=== PATIENT | female | born 1950 | race American Indian/Alaskan Native ===

== ENCOUNTER → 2017-12-19 12:02 | Outpatient (CLI) | payer MEDICARE, MEDICAID, OTHER, SELFPAY ==
--- NOTE | 2017-12-19 | DI.MG.S_ITS ---
BILATERAL DIGITAL SCREENING MAMMOGRAM 3D/2D WITH CAD: 12/19/2017 CLINICAL: Routine screening. Comparison is made to exams dated: 12/05/2016 mammogram, 12/01/2014 mammogram - [facility], and 02/15/2014 mammogram - [facility]. The tissue of both breasts is predominantly fatty. Current study was also evaluated with a Computer Aided Detection (CAD) system. No significant masses, calcifications, or other findings are seen in either breast. There has been no significant interval change. IMPRESSION: NEGATIVE There is no mammographic evidence of malignancy. A 1 year screening mammogram is recommended. This exam was interpreted at Station ID: [id number]. NOTE: For mammograms, a report in lay terms will be sent to the patient. Approximately 15% of breast malignancies will not be visualized mammographically. In the management of a palpable breast mass, a negative mammogram must not discourage biopsy of a clinically suspicious lesion. Electronically Signed By: Ronda galaviz/feliz:12/19/2017 12:32:50 letter sent: Normal Exam ACR BI-RADS Category 1: Negative [id number]
== END ==
PROVIDERS: PCP Family Medicine; Visit Provider Physician Assistant
DX: Z12.31 Encounter for screening mammogram for malignant neoplasm of breast (principal)
CPT/HCPCS: 77063; 77067

== ENCOUNTER → 2018-02-12 16:41 | Outpatient (CLI) | payer MEDICARE, MEDICAID, OTHER, SELFPAY ==
--- NOTE | 2018-02-12 16:45 | DI.RAD.S_ITS ---
PROCEDURE: XR SHOULDER LT MIN 2V INDICATIONS: LEFT SHOULDER PAIN AND LEFT RIB PAIN TECHNIQUE: 3 views of the shoulder were acquired. COMPARISON: [facility], , SHOULDER MINIMUM 2 VIEW LEFT, 07/14/2009, 6:37. FINDINGS: Bones: No fractures or dislocations. No suspicious bony lesions. Visualized ribs appear intact. Old unhealed distal left clavicle fracture. Superior distraction of the proximal fragment. Soft tissues: No suspicious soft tissue calcifications. IMPRESSION: Old unhealed distal left clavicle fracture with superior distraction of the proximal fragment. Dictated by: Roberth Rios M.D. on 02/12/2018 at 17:26 Approved by: Roberth Rios M.D. on 02/12/2018 at 17:27
--- NOTE | 2018-02-12 16:45 | DI.RAD.S_ITS ---
PROCEDURE: XR CHEST 2V INDICATIONS: LEFT SHOULDER PAIN, LEFT RIB PAIN TECHNIQUE: 2 views of the chest were acquired. COMPARISON: [facility], , CHEST 2 VIEW, 10/25/2015, 17:04. FINDINGS: Surgical changes and devices: None. Lungs and pleura: No pleural effusions or pneumothorax. Lungs are clear. Mediastinum: Mediastinal contours are normal. Heart size is normal. Bones and chest wall: No suspicious bony abnormalities. Soft tissues appear unremarkable. IMPRESSION: No radiographic evidence of acute cardiopulmonary pathology. Dictated by: Roberth Rios M.D. on 02/12/2018 at 17:26 Approved by: Roberth Rios M.D. on 02/12/2018 at 17:26
== END ==
PROVIDERS: PCP Family Medicine; Visit Provider Physician Assistant
DX: M25.512 Pain in left shoulder (principal); R07.81 Pleurodynia; S42.032G Displaced fracture of lateral end of left clavicle, subsequent encounter for fracture with delayed healing
CPT/HCPCS: 71046; 73030

== ENCOUNTER 2020-03-04 23:22 | Emergency (ER) | payer MEDICARE, MEDICAID, OTHER, SELFPAY ==
[2020-03-04 23:26] VITALS: BP 180/82; PULSE 103; RESP 22; TEMP 36.7; O2SAT 96; BMI 25.6
--- NOTE | 2020-03-04 23:27 | DI.CT.S_ITS ---
PROCEDURE: CT HEAD/BRAIN WO CON INDICATIONS: worst headache, persistent vomiting TECHNIQUE: Noncontrast 4.5 mm thick angled axial sections acquired from the foramen magnum to the vertex, with coronal and sagittal reformats. For radiation dose reduction, the following was used: automated exposure control, adjustment of mA and/or kV according to patient size. COMPARISON: [facility], CT, CT HEAD WITHOUT CONTRAST, 10/23/2019, 1:46. [facility], CT, HEAD WITHOUT CONTRAST, 12/04/2016, 14:44. FINDINGS: Image quality: Excellent. CSF spaces: Basal cisterns are patent. No extra-axial fluid collections. Ventricles are normal in size and shape. Brain: No midline shift. No intracranial masses or hemorrhage. Bonner-white matter interface is normal. Skull and face: Remote left nasal bone fracture. Calvarium and visualized facial bones are otherwise intact, without suspicious lesions. Sinuses: There is chronic smooth osteitis of maxillary sinuses and partially imaged postsurgical changes of antrostomies bilaterally. Small fluid level in the right sphenoid sinus. IMPRESSION: 1. No CT evidence of acute intracranial process. 2. Changes of acute, mild right sphenoid sinusitis, and chronic maxillary sinusitis post surgery. 3. Concordant with preliminary report. Dictated by: Georgia Ruiz M.D. on 03/05/2020 at 6:45 Approved by: Georgia Ruiz M.D. on 03/05/2020 at 6:48
--- NOTE | 2020-03-04 23:28 | ED.HA ---
HPI - Headache General Chief Complaint: Headache Stated Complaint: Migraine x3 days N/V Time Seen by Provider: 03/04/20 23:25 Source: patient and EMS Mode of arrival: EMS Limitations: no limitations History of Present Illness HPI Narrative: 69F non smoker with history of heavy etoh abuse and headaches presents with the chief complaint of a severe generalized, squeezing headache which started 3 days ago while she was in the kitchen. She states it has been rather persistent. She denies any injury, fever, or chills. She denies focal neurologic problems like blurred or double vision nor extremity numbness, weakness, or tingling. She denies any recent medication or diet change. She has had multiple episodes of vomiting and hasn't had much to eat or drink. She admits to worsening with bright lights and loud noises. She's had no chest pain or shortness of breath, she has no trouble urinating. She denies recent travel, exposure to persons with known COVID. MD Complaint: headache and migraine Onset (ago): day(s) Onset description: sudden Location: frontal Severity: severe Quality: throbbing and squeezing Relieving factors: dark room Exacerbating factors: light and noise Context: occurred at rest Associated symptoms: nausea and vomiting Treatments prior to arrival: none Related Data Home Medications Medication Instructions Recorded Confirmed aspirin #0 08/07/17 hydroxyzine HCl #0 08/07/17 lisinopril #0 08/07/17 lovastatin 40 mg PO HS #0 08/07/17 metformin [Glucophage XR] 750 mg PO [facility] #0 08/07/17 ranitidine HCl 150 mg PO BID #0 08/07/17 Previous Rx's Medication Instructions Recorded pioglitazone 15 mg PO QDAY #30 tab 08/23/16 escitalopram oxalate [Lexapro] 20 mg PO QDAY #30 tab 02/24/17 Allergies Allergy/AdvReac Type Severity Reaction Status Date / Time Sulfa (Sulfonamide Allergy Unknown Vomiting Verified 03/04/20 23:51 Antibiotics) [SULFA (SULFONAMIDE ANTIBIOTICS)] metoclopramide AdvReac Unknown Anxiety Verified 03/04/20 23:51 [METOCLOPRAMIDE] Review of Systems Constitutional Constitutional: Denies chills, Denies fatigue, Denies fever(s), Denies frequent falls, Reports headache(s), Denies lethargy and Denies weakness Eyes Eyes: Denies change in vision, Denies eye discharge, Denies irritation and Denies loss of vision ENT Ears, Nose, Mouth, and Throat: Denies change in voice, Denies dizziness, Reports headache(s), Denies neck pain, Denies sore throat and Denies throat swelling Cardiovascular Cardiovascular: Denies chest pain, Denies irregular heart rhythm, Denies lightheadedness, Denies palpitations, Denies dyspnea, Denies dyspnea on exertion and Denies orthopnea Respiratory Respiratory: Denies cough, Denies dyspnea, Denies dyspnea on exertion and Denies wheezing Gastrointestinal Gastrointestinal: Denies abdominal pain, Denies change in bowel habits, Denies diarrhea, Reports nausea and Reports vomiting Musculoskeletal Musculoskeletal: Denies neck pain and Denies numbness Integumentary/Breasts Skin/Breast: Denies pruritus, Denies erythema, Denies rash and Denies wounds Neurologic Neurologic: Denies behavioral changes, Denies confusion, Denies dizziness, Denies frequent falls, Reports headache(s), Denies loss of vision, Denies numbness and Denies weakness Psychiatric Psychiatric: Denies anxiety, Denies behavioral changes, Denies confusion, Denies depression, Denies homicidal ideation and Denies suicidal ideation Endocrine Endocrine: Denies fatigue, Denies flushing and Denies palpitations Hematologic/Lymphatic Hematologic/Lymphatic: Denies easy bruising Allergic/Immunologic Allergic/Immunologic: Denies urticaria, Denies throat swelling and Denies wheezing Patient History Social History Smoking Status: Never smoker Smoking Status: Never smoker alcohol intake frequency: a few times a week Substance Use Type: does not use Exam Narrative Exam Narrative: GENERAL: [69] year old patient appears stated age. Well-nourished, well-developed patient, in mild distress. Holding an emesis bag HEAD: Atraumatic. Normocephalic. EYES: Pupils equal round and reactive. Extraocular motions intact. No scleral icterus. No injection or drainage. ENT: Nose without bleeding, purulent drainage. Throat without erythema, tonsillar hypertrophy or exudate. Airway patent. NECK: Trachea midline. Non tender CARDIOVASCULAR: Regular rate and rhythm without murmurs, gallops, or rubs. RESPIRATORY: Clear to auscultation. Breath sounds equal bilaterally. No wheezes, rales, or rhonchi. GASTROINTESTINAL: Abdomen soft, non-tender, nondistended. EXTREMITIES: No edema or joint tenderness. BACK: Nontender without deformity or crepitance. No flank tenderness. NEURO: AOx3. SKIN: No rash or erythema of visible areas NIH Stroke Scale 1a. LOC: Patient is alert and keenly responsive (0) 1b. LOC Questions: Patient answers both LOC questions accurately (0) 1c. LOC Commands: Patient performs both tasks correctly (0) 2. Best Gaze: Normal (0) 3. Visual: No visual loss (0) 4. Facial palsy: Normal symmetrical movements (0) 5. Motor arm: No drift (0) 6. Motor leg: No drift (0) 7. Limb ataxia: Absent (0) 8. Sensory: Normal (0) 9. Best language: No aphasia; normal (0) 10. Dysarthria: Normal (0) 11. Extinction and inattention: No abnormality (0) NIHSS: 0 Initial Vital Signs Initial Vital Signs: Vital Signs Temperature 98.0 F 03/04/20 23:26 Pulse Rate 103 H 03/04/20 23:26 Respiratory Rate 22 03/04/20 23:26 Blood Pressure 180/82 H 03/04/20 23:26 Pulse Oximetry 96 03/04/20 23:26 Course Orders Ordered: Discontinued Medications Acetaminophen (Tylenol) 650 mg PO NOW ONE Stop: 03/05/20 00:44 Last Admin: 03/05/20 00:50 Dose: 650 mg Documented by: NAS Dexamethasone (Decadron) 10 mg IV NOW ONE Stop: 03/04/20 23:27 Last Admin: 03/04/20 23:34 Dose: 10 mg Documented by: MALIK Sodium Chloride (Normal Saline 0.9%) 1,000 mls @ 1,000 mls/hr IV BOLUS ONE Stop: 03/05/20 00:25 Last Infusion: 03/05/20 00:59 Dose: 0 mls/hr Documented by: Admin: 03/04/20 23:34 Dose: 1,000 mls/hr Documented by: MALIK Ketorolac Tromethamine (Toradol) 15 mg IV NOW ONE Stop: 03/04/20 23:27 Last Admin: 03/04/20 23:35 Dose: 15 mg Documented by: MALIK Ketorolac Tromethamine (Toradol) 15 mg IV NOW ONE Stop: 03/05/20 04:01 Last Admin: 03/05/20 04:08 Dose: 15 mg Documented by: ROGER Ondansetron HCl (Zofran) 4 mg IV Q4HR PRN PRN Reason: Nausea And Vomiting Last Admin: 03/05/20 04:08 Dose: 4 mg Documented by: Admin: 03/04/20 23:31 Dose: 4 mg Documented by: MALIK Vital Signs Vital signs: Vital Signs - 8 hr 03/04/20 23:26 03/04/20 23:29 03/04/20 23:30 Temperature 98.0 F Pulse Rate 103 H 92 H 93 H Respiratory Rate 22 Blood Pressure 180/82 H 150/68 H Pulse Oximetry 96 97 96 03/05/20 00:00 Temperature Pulse Rate 80 Respiratory Rate Blood Pressure Pulse Oximetry 95 MDM - Headache Lab Data Result diagrams: 03/04/20 23:30 03/04/20 23:30 Labs: Lab Results 03/04/20 03/04/20 Range/Units 23:30 23:30 WBC 6.4 (4.5-11.0) X10^3/uL RBC 5.42 H (4.0-5.2) X10^6/uL Hgb 16.2 H (12.0-16.0) g/dL Hct 47.9 H (36-46) % MCV 88.5 (80-100) fL MCH 29.9 (26-34) PG MCHC 33.8 (30-36) % RDW 13.4 (11.6-14.8) % Plt Count 283 (150-400) X10^3/uL Neut % (Auto) 64.1 (50-75) % Lymph % (Auto) 28.4 (25-40) % [place] % (Auto) 4.7 (3-14) % Eos % (Auto) 1.8 L (2-4) % Baso % (Auto) 1.0 (0-2) % Neut # (Auto) 4100 (9287-5803) /uL Lymph # (Auto) 1800 (5064-7144) /uL [place] # (Auto) 300 (0-900) /uL Eos # (Auto) 100 (0-450) /uL Baso # (Auto) 100 (0-100) /uL Sodium 137 (137-145) mmol/L Potassium 4.3 (3.4-5.1) mmol/L Chloride 102 (98-107) mmol/L Carbon Dioxide 26 (22-32) mmol/L BUN 12 (7-17) mg/dL Creatinine 0.47 L (0.52-1.04) mg/dL Estimated GFR > 60.0 (>60) mL/min BUN/Creatinine Ratio 25.5 H (6-22) Glucose 235 H (80-110) mg/dL Calcium 10.2 (8.4-10.2) mg/dL Total Bilirubin 0.8 (0.2-1.3) mg/dL AST 57 H (14-36) IU/L ALT 38 H (<35) IU/L Alkaline Phosphatase 127 H (38-126) U/L Total Protein 8.1 (6.3-8.2) g/dL Albumin 4.5 (3.5-5.0) g/dL Globulin 3.6 (1.7-4.1) g/dL Albumin/Globulin Ratio 1.3 (1.0-2.8) Imaging Data CT scan - head: Radiologist's Impression: No acute intracranial findings. Right sinusitis Discharge Plan Departure Patient Disposition: Home Clinical Impression: Headache Qualifiers: Headache type: unspecified Headache chronicity pattern: unspecified pattern Intractability: not intractable Qualified Code(s): R51 - Headache Discharge Date/Time: 03/05/20 09:17 Instructions: DI for Headache Activity Restrictions/Additional Instructions: *You have been diagnosed with [headache] *What to do: *Take medications as directed *Follow up with your primary care provider in 2-3 days, call for an appointment. Let them know you were seen in the Emergency Department and that we ask that you be seen in follow up *Return to ER if you should have any new, worsening or concerning symptoms Prescriptions: No Action pioglitazone 15 MG tablet 15 mg PO QDAY Qty: 30 RF: 0 escitalopram oxalate [Lexapro] 20 MG tablet 20 mg PO QDAY Qty: 30 RF: 2 aspirin 81 MG tablet,chewable Qty: 0 RF: 0 ranitidine HCl 150 MG capsule 150 mg PO BID Qty: 0 RF: 0 lisinopril 2.5 MG tablet Qty: 0 RF: 0 metformin [Glucophage XR] 750 MG tablet extended release 24 hr 750 mg PO [facility] Qty: 0 RF: 0 lovastatin 40 MG tablet 40 mg PO HS Qty: 0 RF: 0 hydroxyzine HCl 25 MG tablet Qty: 0 RF: 0 Referrals: Stacy Mills MD [Primary Care Provider] -
[2020-03-04 23:29] VITALS: PULSE 92; O2SAT 97
[2020-03-04 23:30] VITALS: BP 150/68; PULSE 93; O2SAT 96
[2020-03-04] MEDS: ONDANSETRON 4 MG/2 ML INJ IV (23:31)
[2020-03-04] MEDS: DEXAMETHASONE 10 MG/ML VIAL IV (23:34)
[2020-03-04] MEDS: SODIUM CHLORIDE 0.9% 1,000 ML 1000 ML IV (23:34)
[2020-03-04] MEDS: KETOROLAC 60 MG/2 ML VIAL 15 MG IV (23:35)
[2020-03-04 23:45] LABS: Add Manual Diff / Slide Review NO; Basophils Absolute Auto 100 /uL (0-100); Eosinophils Absolute Auto 100 /uL (0-450); Eosinophils Percent Auto 1.8 % (2-4); Hematocrit 47.9 % (36-46); Hemoglobin 16.2 g/dL (12.0-16.0); Lymphocytes Absolute Auto 1800 /uL (1100-4500); Lymphocytes Percent Auto 28.4 % (25-40); Mean Corpuscular HGB Conc 33.8 % (30-36); Mean Corpuscular Hemoglobin 29.9 PG (26-34); Mean Corpuscular Volume 88.5 fL (80-100); Monocytes Absolute Auto 300 /uL (0-900); Monocytes Percent Auto 4.7 % (3-14); Neutrophils Absolute Auto 4100 /uL (1500-7000); Neutrophils Percent Auto 64.1 % (50-75); Platelet Count 283 X10^3/uL (150-400); Red Blood Cell Count 5.42 X10^6/uL (4.0-5.2); Red Cell Distribution Width 13.4 % (11.6-14.8); White Blood Cell Count 6.4 X10^3/uL (4.5-11.0)
[2020-03-04 23:49] LABS: Alanine Aminotransferase 38 IU/L (<35); Albumin 4.5 g/dL (3.5-5.0); Albumin Globulin Ratio 1.3 (1.0-2.8); Alkaline Phosphatase 127 U/L (38-126); Aspartate Aminotransferase 57 IU/L (14-36); BUN Creatinine Ratio 25.5 (6-22); Bilirubin Total 0.8 mg/dL (0.2-1.3); Blood Urea Nitrogen 12 mg/dL (7-17); Calcium 10.2 mg/dL (8.4-10.2); Carbon Dioxide 26 mmol/L (22-32); Chloride 102 mmol/L (98-107); Estimated Glomerular Filt Rate > 60.0 mL/min (>60); Globulin 3.6 g/dL (1.7-4.1); Glucose 235 mg/dL (80-110); HEMOLYSIS < 15 (0-50); Potassium 4.3 mmol/L (3.4-5.1); Sodium 137 mmol/L (137-145); Total Protein 8.1 g/dL (6.3-8.2)
[2020-03-05] VITALS: PULSE 80; O2SAT 95
--- NOTE | 2020-03-05 00:42 | PC.NURSE ---
patient gave permission witnessed by PAULINA Olivarez to gave her daughter Jessica an update on the phone. Jessica called at [phone].
[2020-03-05] MEDS: ACETAMINOPHEN 325 MG TABLET 650 MG PO (00:50)
--- NOTE | 2020-03-05 02:33 | PC.NURSE ---
several attempts made to call patient contacts to come and pick patient up. Patient resting on stretcher. denies needs at this time. States her headache is still feeling better. room kept dark and warm blankets provided.
[2020-03-05] MEDS: ONDANSETRON 4 MG/2 ML INJ IV (04:08)
[2020-03-05] MEDS: KETOROLAC 60 MG/2 ML VIAL 15 MG IV (04:08)
--- NOTE | 2020-03-05 06:46 | PC.NURSE ---
attempted to call Urszula Herzog to give patient a ride home. No answer. Message left. [phone]
== END 2020-03-05 09:17 | disposition home or self-care (01) ==
PROVIDERS: Emergency Provider Emergency Medicine; PCP Family Medicine
DX: R51 Headache (principal); R11.10 Vomiting, unspecified
CPT/HCPCS: 36415; 70450; 80053; 85025; 96361; 96374; 96375; 96376; 99284; J1100; J1885; J2405

== ENCOUNTER 2021-11-04 14:24 | Emergency (ER) | payer MEDICARE, MEDICAID, OTHER, SELFPAY ==
[2021-11-04] VITALS (16 sets, daily range): BP systolic 136–176; BP diastolic 63–79; PULSE 67–94; RESP 18–20; TEMP 36.5; O2SAT 96–99; BMI 23.0
--- NOTE | 2021-11-04 14:33 | DI.RAD.S_ITS ---
PROCEDURE: XR ACUTE ABDOMEN SERIES INDICATIONS: Abdominal pain, N/V TECHNIQUE: One view chest and two views of the abdomen were acquired. COMPARISON: [facility], CT, CT ABDOMEN PELVIS WITH CONTRAST, 11/26/2020, 18:14. [facility], CT, CT ANGIO CHEST PE, 02/19/2021, 21:14. [facility], CR, XR CHEST 1 VIEW, 10/22/2021, 14:13. FINDINGS: Surgical changes and devices: None. Chest: Lungs are clear. Heart size is normal. No pleural effusions. No pneumoperitoneum. Abdomen: Bowel gas pattern is normal. A nnzm-cy-jrdhuomj amount of stool is seen within the colon. No suspicious calcifications. Visualized solid organ contours appear normal. Bones: No suspicious bony lesions. Age-appropriate bony degenerative changes are seen. Mild dextroconvex scoliotic curvature is seen. IMPRESSION: A nonobstructive bowel gas pattern is seen. If clinically appropriate, please consider a repeat plain film study or a dedicated CT of the abdomen and pelvis, if the patient's symptoms persist or worsen. There is a mild to moderate amount of stool seen within the colon. Please correlate with an underlying history of constipation. Dictated by: Tapan Espinal M.D. on 11/04/2021 at 14:36 Approved by: Tapan Espinal M.D. on 11/04/2021 at 14:39
--- NOTE | 2021-11-04 14:52 | ED.HA ---
HPI - Headache General Chief Complaint: Headache Stated Complaint: migraine headache and nausea Time Seen by Provider: 11/04/21 14:28 Mode of arrival: Ambulatory History of Present Illness HPI Narrative: 70F former smoker with heavy alcohol history as well as hypertension, hyperlipidemia and migraines presents with family in the chief complaint of a gradually worsening migraine over the past day or 2. She states it started yesterday and has been gradual in its onset, it is largely in the front part of her head and seems to be worse with bright lights, loud noise and vomiting. She denies any blurred vision or trouble with speech. She denies any neck pain, back pain or chest pain. She has no fever or chills. She does not take blood thinners. She has had difficulty keeping anything to eat or drink down and now feels a bit dizzy, weak and lightheaded. She becomes dizzy upon standing. Related Data Home Medications Medication Instructions Recorded Confirmed aspirin 81 mg chewable tablet #0 08/07/17 hydroxyzine HCl 25 mg tablet #0 08/07/17 lisinopril 2.5 mg tablet #0 08/07/17 lovastatin 40 mg tablet 40 mg PO HS #0 08/07/17 metformin 750 mg tablet,extended 750 mg PO AMCC #0 08/07/17 release 24 hr (Glucophage XR) ranitidine HCl 150 mg capsule 150 mg PO BID #0 08/07/17 Previous Rx's Medication Instructions Recorded pioglitazone 15 mg tablet 15 mg PO QDAY #30 tab 08/23/16 escitalopram oxalate 20 mg tablet 20 mg PO QDAY #30 tab 02/24/17 (Lexapro) ondansetron 4 mg disintegrating 4 mg PO TID-QID PRN #10 tab 11/04/21 tablet Allergies Allergy/AdvReac Type Severity Reaction Status Date / Time Sulfa (Sulfonamide Allergy Unknown Vomiting Verified 11/04/21 14:38 Antibiotics) [SULFA (SULFONAMIDE ANTIBIOTICS)] oxycodone Allergy Verified 11/04/21 14:38 metoclopramide AdvReac Unknown Anxiety Verified 11/04/21 14:38 [METOCLOPRAMIDE] Review of Systems Review of Systems Narrative: GENERAL: Denies chills, fatigue, malaise, fever, sweats. HEENT: Denies sinus pain, ear pain, sore throat, difficulty swallowing, dizziness. RESPIRATORY: Denies dyspnea, cough, wheezing, hemoptysis, sputum. CARDIOVASCULAR: Denies chest pain, palpitations, orthopnea, edema, GASTROINTESTINAL: See HPI : Denies dysuria, frequency, incontinence, hematuria, urinary retention. MUSCULOSKELETAL: denies weakness, joint pain, or bony pain SKIN: Denies rash, skin lesions, or other NEUROLOGIC: See HPI PSYCHIATRIC: No concerning psychosocial issues. 12 point review of systems is negative except for those stated above Patient History Social History Smoking Status: Former smoker Smoking Status: Former smoker alcohol intake frequency: a few times a week Substance Use Type: does not use Exam Narrative Exam Narrative: GENERAL: [70] year old patient appears stated age. Well-developed patient, in mild distress. Appears to be feeling unwell, rubbing her forehead HEAD: Atraumatic. Normocephalic. EYES: Pupils equal round and reactive. Extraocular motions intact. No scleral icterus. No injection or drainage. ENT: Nose without bleeding, purulent drainage. Throat without erythema, tonsillar hypertrophy or exudate. Airway patent. NECK: Trachea midline. Non tender. No meningeal signs. CARDIOVASCULAR: Regular rate and rhythm without murmurs, gallops, or rubs. RESPIRATORY: Clear to auscultation. Breath sounds equal bilaterally. No wheezes, rales, or rhonchi. GASTROINTESTINAL: Abdomen soft, non-tender, nondistended. Bowel sounds present EXTREMITIES: No edema or joint tenderness. BACK: Nontender without deformity or crepitance. No flank tenderness. NEURO: AOx3. SKIN: No rash or erythema of visible areas Initial Vital Signs Initial Vital Signs: Vital Signs Pulse Rate 94 H 11/04/21 14:28 Pulse Oximetry 97 11/04/21 14:28 Course Orders Ordered: ED Orders 11/04/21 14:33 XR acute abdomen series Stat 11/04/21 15:00 Complete Blood Count AUTO DIFF Stat Comprehensive Metabolic Panel Stat Lipase Stat Magnesium Stat 11/04/21 16:25 CT head/brain wo con Stat Discontinued Medications Sodium Chloride (Normal Saline 0.9%) 1,000 mls @ 1,000 mls/hr IV BOLUS ONE Stop: 11/04/21 15:31 Last Infusion: 11/04/21 16:58 Dose: 0 mls/hr Documented by: Admin: 11/04/21 15:13 Dose: 1,000 mls/hr Documented by: TYE Sodium Chloride (Normal Saline 0.9%) 500 mls @ 1,000 mls/hr IV BOLUS ONE Stop: 11/04/21 18:01 Last Infusion: 11/04/21 18:29 Dose: 0 mls/hr Documented by: Admin: 11/04/21 17:51 Dose: 1,000 mls/hr Documented by: JULIA Ketorolac Tromethamine (Ketorolac 30 Mg/Ml Vial) 15 mg IV NOW ONE Stop: 11/04/21 14:54 Last Admin: 11/04/21 15:08 Dose: 15 mg Documented by: TYE Metoclopramide HCl (Metoclopramide 10 Mg/2 Ml Inj) 5 mg IV NOW ONE Stop: 11/04/21 17:34 Last Admin: 11/04/21 17:52 Dose: 5 mg Documented by: JULIA Ondansetron HCl (Ondansetron 4 Mg/2 Ml Inj) 4 mg IV NOW ONE Stop: 11/04/21 14:33 Last Admin: 11/04/21 15:07 Dose: 4 mg Documented by: TYE Ondansetron HCl (Ondansetron 4 Mg Odt Prepack) 1 bottle MISC SEEINSTR ONE Stop: 11/04/21 18:51 Last Admin: 11/04/21 18:53 Dose: 1 bottle Documented by: Pantoprazole Sodium (Pantoprazole 40 Mg Vial) 40 mg IV NOW ONE Stop: 11/04/21 14:54 Last Admin: 11/04/21 15:11 Dose: 40 mg Documented by: TYE Vital Signs Vital signs: Vital Signs - 8 hr 11/04/21 14:28 11/04/21 14:29 11/04/21 14:30 Temperature Pulse Rate 94 H 94 H 86 Respiratory Rate 20 Blood Pressure 167/74 H Pulse Oximetry 97 97 98 11/04/21 14:34 11/04/21 15:00 11/04/21 15:30 Temperature 97.7 F Pulse Rate 94 H 79 71 Respiratory Rate 18 Blood Pressure 167/74 H Pulse Oximetry 98 96 98 11/04/21 15:31 11/04/21 16:00 11/04/21 16:38 Temperature Pulse Rate 71 71 72 Respiratory Rate Blood Pressure 136/63 144/66 H Pulse Oximetry 98 98 98 11/04/21 16:59 11/04/21 17:00 11/04/21 17:30 Temperature Pulse Rate 73 67 69 Respiratory Rate Blood Pressure Pulse Oximetry 98 99 99 11/04/21 18:03 Temperature Pulse Rate 72 Respiratory Rate 20 Blood Pressure 176/79 H Pulse Oximetry 97 MDM - Headache Lab Data Result diagrams: 11/04/21 15:00 11/04/21 15:00 Labs: Lab Results 11/04/21 11/04/21 Range/Units 15:00 15:00 WBC 4.8 (4.5-11.0) X10^3/uL RBC 4.86 (4.0-5.2) X10^6/uL Hgb 14.1 (12.0-16.0) g/dL Hct 41.7 (36-46) % MCV 85.8 (80-100) fL MCH 29.1 (26-34) PG MCHC 33.9 (30-36) % RDW 13.1 (11.6-14.8) % Plt Count 264 (150-400) X10^3/uL Neut % (Auto) 56.6 (50-75) % Lymph % (Auto) 32.8 (25-40) % Piatt % (Auto) 4.8 (3-14) % Eos % (Auto) 4.8 H (2-4) % Baso % (Auto) 1.0 (0-2) % Neut # (Auto) 2700 (5119-2325) /uL Lymph # (Auto) 1600 (4938-0432) /uL Piatt # (Auto) 200 (0-900) /uL Eos # (Auto) 200 (0-450) /uL Baso # (Auto) 0 (0-100) /uL Sodium 137 (137-145) mmol/L Potassium 4.6 (3.4-5.1) mmol/L Chloride 101 (98-107) mmol/L Carbon Dioxide 29 (22-32) mmol/L BUN 8 (7-17) mg/dL Creatinine 0.55 (0.52-1.04) mg/dL Estimated GFR > 60.0 (>60) mL/min BUN/Creatinine Ratio 14.5 (6-22) Glucose 243 H (80-110) mg/dL Calcium 9.2 (8.4-10.2) mg/dL Magnesium 1.8 (1.6-2.3) mg/dL Total Bilirubin 0.6 (0.2-1.3) mg/dL AST 41 H (14-36) IU/L ALT 26 (<35) IU/L Alkaline Phosphatase 109 (38-126) U/L Total Protein 7.7 (6.3-8.2) g/dL Albumin 4.3 (3.5-5.0) g/dL Globulin 3.4 (1.7-4.1) g/dL Albumin/Globulin Ratio 1.3 (1.0-2.8) Lipase 900 H (23-300) U/L Urine Dip Bedside Urine Glucose Negative Bedside Urine Bilirubin - Negative Bedside Urine Ketone - Negative Urine Specific Hinkley 1.01 Bedside Urine Occult Blood - Negative Bedside Urine pH 7 Bedside Urine Protein - Negative Bedside Urine Urobilinogen - Negative Bedside Urine Nitrite - Negative Bedside Urine Leukocytes - Negative Esterase Imaging Data CT scan - head: Radiologist's Impression: Chart Viewer Diagnostics Subcategory All Activity ??:?? All Time ??:?? All Subcategories Filter Laboratory Imaging Microbiology Pathology Blood Bank Tests Cardiovascular Other Specialty DATE TYPE STATUS REF RANGE/AUTHOR Hx Today 16:[address] Signed Tapan Espinal Today 14:33 Chest/Abdomen X-ray Signed Tapan Espinal 03/04/20 23:[address] Signed Georgia Ruiz 02/12/18 16:45 Shoulder X-Ray Signed Ang Rios 02/12/18 16:45 Chest X-Ray Signed Ang Rios 12/19/17 00:00 Mammogram Screening Signed Ronda Sawant Colleen L ED 70, F?1950 MRN#? [id number] [facility],?[facility] ED??? 157.48cm 57.153kg BMI: 23.0kg/m? Headache Acc#? [id number] Resus Status Not Ordered No Hx Avail Special Indicators No Data to Display Home Meds Not Confirmed Prescription Monitoring Program MEDICATIONS (INSTRUCTIONS) LAST TAKEN Active ??aspirin ??#0 ??escitalopram oxalate [Lexapro] ??20 mgPOQDAY#30 tab ??hydroxyzine HCl ??#0 ??lisinopril ??#0 ??lovastatin ??40 mgPOHS#0 ??metformin [Glucophage XR] ??750 mgPOAMCC#0 *Product no longer available ondansetron 4 mgPOTID-QIDPRN#10 tab ??pioglitazone ??15 mgPOQDAY#30 tab ??ranitidine HCl ??150 mgPOBID#0 *Product no longer available Allergies Sulfa (Sulfonamide Antibiotics) (SULFA (SULFONAMIDE ANTIBIOTICS)) Vomiting oxycodone metoclopramide (METOCLOPRAMIDE) Anxiety Problems ? ONSET Migraine Acute dehydration Vomiting Alcohol consumption heavy Flank pain Headache Vital Signs Today 18:42 BP 165/65?H Pulse 72? O2 Sat 97? Delivery Room Air? Diagnostics Reports Mervat Salas??70??F??1950 ? Allergy/Adv: Sulfa (Sulfonamide Antibiotics), oxycodone, metoclopramide (More??) Close Head CT (Signed) Tapan Espinal - 11/04/21 Chest/Abdomen X-ray (Signed) Tapan Espinal - 11/04/[address] (Signed) Georgia Ruiz - 03/04/20 Shoulder X-Ray (Signed) Ang Rios - 02/12/18 Chest X-Ray (Signed) Ang Rios - 02/12/18 Mammogram Screening (Signed) Ronda Sawant - 12/19/17 Launch?[place] [address] CT Scan Report Signed Patient: Mervat Salas MR#: [id number] : 1950 Acct:[id number] Age/Sex: 70 / F Date of Service: 11/04/21 Loc: ED Accession Number: [id number] ?? Procedure: CT head/brain wo con Ordering Provider: Dami Devlin D.O. PROCEDURE:? CT HEAD/BRAIN WO CON ? INDICATIONS:? headache, vomiting, history alcohol, possible fall ? TECHNIQUE:? Noncontrast 4.5 mm thick angled axial sections acquired from the foramen magnum to the vertex, with coronal and sagittal reformats.? For radiation dose reduction, the following was used:? automated exposure control, adjustment of mA and/or kV according to patient size.? ? COMPARISON:? [facility], CT, CT ANGIO HEAD AND NECK, 06/03/2020, 16:04.? [facility], MR, MR BRAIN WITHOUT CONTRAST, 06/03/2020, 17:51.? [facility], CT, CT HEAD WITHOUT CONTRAST, 09/14/2021, 4:09.? [facility], CR, XR ACUTE ABDOMEN SERIES, 11/04/2021, 14:46.? [facility], CT, CT HEAD/BRAIN WO CON, 03/04/2020, 23:43. ? FINDINGS:? Image quality:? Excellent.? ? CSF spaces:? Basal cisterns are patent.? No extra-axial fluid collections.? The ventricles are symmetric in size and shape.? ? Brain:? No intracranial bleeds or masses.? There is cerebral volume loss for age, with resultant ventricular and sulcal prominence.? There are periventricular and deep white matter chronic small vessel ischemic changes.? Stable areas of remote low density can be seen involving the left frontal lobe and the left occipital lobe., as before.? There is intracranial internal carotid artery atherosclerosis.? ? Skull and face:? Calvarium and visualized facial bones appear intact, without suspicious lesions.? ? Sinuses:? Visualized sinuses and mastoids are clear.? IMPRESSION:? ? No acute intracranial process is seen.? ? No acute intracranial hemorrhage is seen.? ? Stable areas left cerebral hemisphere remote infarction can be seen.? ? Dictated by: Tapan Espinal M.D. on 11/04/2021 at 15:40 ? ? Approved by: Tapan Espinal M.D. on 11/04/2021 at 15:42 ? Abdominal x-ray: Radiologist's Impression: [address] [address] XRay Report Signed Patient: Mervat Salas MR#: [id number] : 1950 Acct:[id number] Age/Sex: 70 / F Date of Service: 11/04/21 Loc: ED Accession Number: [id number] ?? Procedure: XR acute abdomen series Ordering Provider: Fleming,Dami D.O. PROCEDURE:? XR ACUTE ABDOMEN SERIES ? INDICATIONS:? Abdominal pain, N/V ? TECHNIQUE:? One view chest and two views of the abdomen were acquired.? ? COMPARISON:? [facility], CT, CT ABDOMEN PELVIS WITH CONTRAST, 11/26/2020, 18:14.? [facility], CT, CT ANGIO CHEST PE, 02/19/2021, 21:14.? [facility], CR, XR CHEST 1 VIEW, 10/22/2021, 14:13. ? FINDINGS:? ? Surgical changes and devices:? None.? ? Chest:? Lungs are clear.? Heart size is normal.? No pleural effusions.? No pneumoperitoneum.? ? Abdomen:? Bowel gas pattern is normal.? A [id number] amount of stool is seen within the colon.? No suspicious calcifications.? Visualized solid organ contours appear normal. ? ? Bones:? No suspicious bony lesions.? Age-appropriate bony degenerative changes are seen.? Mild dextroconvex scoliotic curvature is seen. ? IMPRESSION:? A nonobstructive bowel gas pattern is seen. ? If clinically appropriate, please consider a repeat plain film study or a dedicated CT of the abdomen and pelvis, if the patient's symptoms persist or worsen. ? ? There is a mild to moderate amount of stool seen within the colon. Please correlate with an underlying history of constipation.? ? ? Dictated by: Tapan Espinal M.D. on 11/04/2021 at 14:36 ? ? Approved by: Tapan Espinal M.D. on 11/04/2021 at 14:39 ? MDM Narrative Medical decision making narrative: Headache considerations include, but not limited to: Subarachnoid hemorrhage, but unlikely as patient denies sudden onset of pain, not worst of life, or neck pain Meningitis considered, but thought unlikely given lack of Brudzinski's, Kernig's sign, altered mental status or fever Giant cell arteritis considered, but thought unlikely given lack of unilateral findings, pain in buddhist, vision change HTN Emergency considered, but thought unlikely given normal vitals Other serious diagnoses considered unlikely given lack of red flag findings such as sudden onset, increasing frequency, immunocompromise, systemic signs (fever, chills, stiff neck, or rash), focal neurologic findings, trauma, blood thinners, etc. Patient feels significant improvement after above-stated therapies with minimal if any ongoing head pain. Additionally, her nausea is well controlled, she is tolerating orals and ambulating through the department at her baseline. Extensive return precautions discussed and questions have been answered to her apparent satisfaction Discharge Plan Departure Patient Disposition: Home Clinical Impression: Migraine, Acute dehydration, Vomiting Instructions: DI for Vomiting -- Adult, DI for Headache Activity Restrictions/Additional Instructions: *You have been diagnosed with [nausea and vomiting with migraine-type headache. As we discussed your history and physical exam, labs, imaging and response to therapies has been very reassuring. *What to do: *Please continue to take your regular medications as directed. [ x] New medication prescriptions sent to your pharmacy: [[facility] ] [ ] New medication written as a paper prescription [ ] No new medications given *Please follow up with your primary care provider in 2-3 days, call for an appointment. Let them know you were seen in the Emergency Department and that we ask that you be seen in follow up. We will electronically transmit a record of today's note if your PCP is in our system *If you do not have a primary care provider please contact the [facility] Resource line at [phone]. They will ask some questions about your medical history and help get you set up with a doctor in the community. *Return to Emergency Department if you should have any new, worsening or concerning symptoms, such as [fever greater than 101 F, shaking chills, worsening pain, persistent vomiting or other bothersome symptoms] Prescriptions: New ondansetron 4 mg tablet,disintegrating 4 mg PO TID-QID PRN (Reason: nausea and vomiting) Qty: 10 0RF No Action pioglitazone 15 MG tablet 15 mg PO QDAY Qty: 30 0RF escitalopram oxalate [Lexapro] 20 MG tablet 20 mg PO QDAY Qty: 30 2RF aspirin 81 MG tablet,chewable Qty: 0 0RF ranitidine HCl 150 MG capsule 150 mg PO BID Qty: 0 0RF lisinopril 2.5 MG tablet Qty: 0 0RF metformin [Glucophage XR] 750 MG tablet extended release 24 hr 750 mg PO AMCC Qty: 0 0RF lovastatin 40 MG tablet 40 mg PO HS Qty: 0 0RF hydroxyzine HCl 25 MG tablet Qty: 0 0RF Referrals: Stacy Mills MD [Primary Care Provider] -
[2021-11-04] MEDS: ONDANSETRON 4 MG/2 ML INJ IV (15:07)
[2021-11-04] MEDS: KETOROLAC 30 MG/ML VIAL 15 MG IV (15:08)
[2021-11-04 15:11] LABS: Add Manual Diff / Slide Review NO; Basophils Absolute Auto 0 /uL (0-100); Eosinophils Absolute Auto 200 /uL (0-450); Eosinophils Percent Auto 4.8 % (2-4); Hematocrit 41.7 % (36-46); Hemoglobin 14.1 g/dL (12.0-16.0); Lymphocytes Absolute Auto 1600 /uL (1100-4500); Lymphocytes Percent Auto 32.8 % (25-40); Mean Corpuscular HGB Conc 33.9 % (30-36); Mean Corpuscular Hemoglobin 29.1 PG (26-34); Mean Corpuscular Volume 85.8 fL (80-100); Monocytes Absolute Auto 200 /uL (0-900); Monocytes Percent Auto 4.8 % (3-14); Neutrophils Absolute Auto 2700 /uL (1500-7000); Neutrophils Percent Auto 56.6 % (50-75); Platelet Count 264 X10^3/uL (150-400); Red Blood Cell Count 4.86 X10^6/uL (4.0-5.2); Red Cell Distribution Width 13.1 % (11.6-14.8); White Blood Cell Count 4.8 X10^3/uL (4.5-11.0)
[2021-11-04] MEDS: PANTOPRAZOLE 40 MG VIAL IV (15:11)
[2021-11-04] MEDS: SODIUM CHLORIDE 0.9% 1,000 ML 1000 ML IV (15:13)
[2021-11-04 15:21] LABS: Alanine Aminotransferase 26 IU/L (<35); Albumin 4.3 g/dL (3.5-5.0); Albumin Globulin Ratio 1.3 (1.0-2.8); Alkaline Phosphatase 109 U/L (38-126); Aspartate Aminotransferase 41 IU/L (14-36); BUN Creatinine Ratio 14.5 (6-22); Bilirubin Total 0.6 mg/dL (0.2-1.3); Blood Urea Nitrogen 8 mg/dL (7-17); Calcium 9.2 mg/dL (8.4-10.2); Carbon Dioxide 29 mmol/L (22-32); Chloride 101 mmol/L (98-107); Estimated Glomerular Filt Rate > 60.0 mL/min (>60); Globulin 3.4 g/dL (1.7-4.1); Glucose 243 mg/dL (80-110); HEMOLYSIS < 15 (0-50); Lipase 900 U/L (23-300); Magnesium 1.8 mg/dL (1.6-2.3); Potassium 4.6 mmol/L (3.4-5.1); Sodium 137 mmol/L (137-145); Total Protein 7.7 g/dL (6.3-8.2)
--- NOTE | 2021-11-04 16:25 | DI.CT.S_ITS ---
PROCEDURE: CT HEAD/BRAIN WO CON INDICATIONS: headache, vomiting, history alcohol, possible fall TECHNIQUE: Noncontrast 4.5 mm thick angled axial sections acquired from the foramen magnum to the vertex, with coronal and sagittal reformats. For radiation dose reduction, the following was used: automated exposure control, adjustment of mA and/or kV according to patient size. COMPARISON: [facility], CT, CT ANGIO HEAD AND NECK, 06/03/2020, 16:04. [facility], MR, MR BRAIN WITHOUT CONTRAST, 06/03/2020, 17:51. [facility], CT, CT HEAD WITHOUT CONTRAST, 09/14/2021, 4:09. [facility], CR, XR ACUTE ABDOMEN SERIES, 11/04/2021, 14:46. [facility], CT, CT HEAD/BRAIN WO CON, 03/04/2020, 23:43. FINDINGS: Image quality: Excellent. CSF spaces: Basal cisterns are patent. No extra-axial fluid collections. The ventricles are symmetric in size and shape. Brain: No intracranial bleeds or masses. There is cerebral volume loss for age, with resultant ventricular and sulcal prominence. There are periventricular and deep white matter chronic small vessel ischemic changes. Stable areas of remote low density can be seen involving the left frontal lobe and the left occipital lobe., as before. There is intracranial internal carotid artery atherosclerosis. Skull and face: Calvarium and visualized facial bones appear intact, without suspicious lesions. Sinuses: Visualized sinuses and mastoids are clear. IMPRESSION: No acute intracranial process is seen. No acute intracranial hemorrhage is seen. Stable areas left cerebral hemisphere remote infarction can be seen. Dictated by: Tapan Espinal M.D. on 11/04/2021 at 15:40 Approved by: Tapan Espinal M.D. on 11/04/2021 at 15:42
[2021-11-04] MEDS: SODIUM CHLORIDE 0.9% 500 ML 1000 ML IV (17:51)
[2021-11-04] MEDS: METOCLOPRAMIDE 10 MG/2 ML INJ 5 MG IV (17:52)
--- NOTE | 2021-11-04 18:31 | PC.NURSE ---
Pt drank water, tolerated well, denies N/V. States her migraine has improved. Pt ambulated to the bathroom and back to room, states she was almost running, steadier than she was when she first arrived.
[2021-11-04] MEDS: ONDANSETRON 4 MG ODT PREPACK 1 BOTTLE MISC (18:53)
== END 2021-11-04 18:58 | disposition home or self-care (01) ==
PROVIDERS: Emergency Provider Emergency Medicine; PCP Family Medicine
DX: G43.909 Migraine, unspecified, not intractable, without status migrainosus (principal); E86.0 Dehydration; R11.2 Nausea with vomiting, unspecified
CPT/HCPCS: 36415; 70450; 74022; 80053; 81003; 83690; 83735; 85025; 96361; 96374; 96375; 99284; C9113; J1885; J2405; J2765

== ENCOUNTER 2025-06-07 14:09 | Emergency (ER) | payer MEDICARE, MEDICAID, SELFPAY ==
[2025-06-07] VITALS (20 sets, daily range): BP systolic 98–139; BP diastolic 51–60; PULSE 85–100; RESP 14–24; TEMP 36.7; O2SAT 96–100; BMI 27.4
--- NOTE | 2025-06-07 14:20 | EKG_ITS ---
[address] [address] [address] [address] Test Date: 2025-06-07 Pat Name: Mervat Salas Department: Room: Gender: Female [employer] Reporter: RAYMON : 1950 Requested By: Order Number: [id number] Reading MD: Kristian Fraser MD Measurements Intervals Arnot Rate: 92 P: 58 MS: 150 QRS: 23 QRSD: 76 T: 64 QT: 384 QTc: 474 Interpretive Statements Normal sinus rhythm Electronically Signed On 06-07-2025 16:53:03 PST by Kristian Fraser MD
[2025-06-07 14:43] LABS: Add Manual Diff / Slide Review NO; Hematocrit 28.1 % (36-46); Hemoglobin 9.5 g/dL (12.0-16.0); Lymphocytes Absolute Auto 1000 /uL (1100-4500); Mean Corpuscular HGB Conc 33.9 % (30-36); Mean Corpuscular Hemoglobin 28.6 PG (26-34); Mean Corpuscular Volume 84.3 fL (80-100); Platelet Count 310 X10^3/uL (150-400)
[2025-06-07 14:50] LABS: INR 1.1 (0.9-1.3); Prothrombin Time 12.3 SECONDS (9.4-12.5)
[2025-06-07 14:53] LABS: PTT Partial Thromboplastin Tim 31 SECONDS (25.1-36.5)
[2025-06-07 14:55] LABS: Alanine Aminotransferase 18 IU/L (<35); Albumin 3.7 g/dL (3.5-5.0); Albumin Globulin Ratio 1.3 (1.0-2.8); Alkaline Phosphatase 103 U/L (38-126); Blood Urea Nitrogen 17 mg/dL (7-17); Calcium 8.4 mg/dL (8.4-10.2); Carbon Dioxide 26 mmol/L (22-32); Chloride 106 mmol/L (98-107); Estimated Glomerular Filt Rate > 60 mL/min (>60); Globulin 2.8 g/dL (1.7-4.1); Glucose 104 mg/dL (70-99); HEMOLYSIS < 15 (0-50); Potassium 4.7 mmol/L (3.4-5.1); Sodium 141 mmol/L (137-145); Total Protein 6.5 g/dL (6.3-8.2)
--- NOTE | 2025-06-07 15:01 | DI.CT.S_ITS ---
PROCEDURE: CT ABDOMEN PELVIS W CON INDICATIONS: abd pain diverticulitis suspected TECHNIQUE: After the administration of intravenous contrast, axial sections acquired from the lung bases to the pubic symphysis. Coronal and sagittal reformats were performed. For radiation dose reduction, the following was used: automated exposure control, adjustment of mA and/or kV according to patient size. COMPARISON: [facility], CT, CT ABDOMEN PELVIS WITH CONTRAST, 05/27/2025, 19:31. FINDINGS: Image quality: Diagnostic. Lower Chest: [id number] hiatal hernia. ABDOMEN: Liver: No solid mass. Gallbladder: Absent Biliary ducts: No biliary dilation. Pancreas: No ductal dilation. Spleen: Size is within normal limits. Adrenal Glands: No adrenal nodules. Kidneys and Ureters: No hydronephrosis. No solid mass. No complex renal cystic lesion which requires follow up. Stomach and Bowel: Normal colonic caliber, without significant wall thickening. Moderately advanced sigmoid diverticulosis. No CT evidence of acute diverticulitis. Peritoneum: No abnormal intraperitoneal fluid. No free air. Ventral Wall: No significant ventral hernia. Abdominal Nodes: No retroperitoneal or mesenteric adenopathy by size criteria. Vessels: Aorta and inferior vena cava are normal in size. PELVIS: Pelvic Organs: Uterus is surgically absent. No adnexal masses.. Bladder: No bladder wall thickening, accounting for underdistention. Pelvic Nodes: No enlarged lymph nodes. Miscellaneous: No inguinal hernias are seen. Bones: No aggressive osseous abnormality. IMPRESSION: 1. Moderately advanced sigmoid diverticulosis without CT evidence of acute diverticulitis. 2. Remote cholecystectomy and hysterectomy. 3. Normal appendix. 4. [id number]-[id number]-ldcrgiyf hiatal hernia. Dictated by: Wilber Wright M.D. on 06/07/2025 at 15:19 Approved by: Wilber Wright M.D. on 06/07/2025 at 15:27
--- NOTE | 2025-06-07 15:36 | ED.GIBLEED ---
HPI - GI Bleed General Chief complaint: GI Bleed Stated complaint: dark blood in stool/dizzy Time Seen by Provider: 06/07/25 14:56 Source: patient and EMS Mode of arrival: EMS History of Present Illness HPI Narrative: Patient here for dizziness, no abdominal pain starting today also had bright red blood per rectum. None since then. Patient is not on any blood thinners. Patient does have history of lower GI bleed diverticulosis diverticulitis. Did have clipping of duodenal bulb by Dr. Avalos, [facility], November 08, 2023. Patient denies any syncope. No chest pain palpitations no back pain. Patient did have history of blood transfusions and iron infusions prior to the clipping. Related Data Home Medications ?Medication ?Instructions ?Recorded ?Confirmed aspirin 81 mg chewable tablet ##0 08/07/17 hydroxyzine HCl 25 mg tablet ##0 08/07/17 lisinopril 2.5 mg tablet ##0 08/07/17 lovastatin 40 mg tablet 40 mg PO HS ##0 08/07/17 metformin 750 mg tablet,extended 750 mg PO [facility] ##0 08/07/17 release 24 hr (Glucophage XR) ranitidine HCl 150 mg capsule 150 mg PO BID ##0 08/07/17 Previous Rx's ?Medication ?Instructions ?Recorded pioglitazone 15 mg tablet 15 mg PO QDAY #30 tabs 08/23/16 escitalopram oxalate 20 mg tablet 20 mg PO QDAY #30 tabs 02/24/17 (Lexapro) ondansetron 4 mg disintegrating 4 mg PO TID-QID PRN nausea and 11/04/21 tablet vomiting #10 tabs Allergies Allergy/AdvReac Type Severity Reaction Status Date / Time Sulfa (Sulfonamide Allergy Unknown Vomiting Verified 11/04/21 14:38 Antibiotics) (SULFA (SULFONAMIDE ANTIBIOTICS)) oxycodone Allergy Verified 11/04/21 14:38 metoclopramide AdvReac Unknown Anxiety Verified 11/04/21 14:38 (METOCLOPRAMIDE) Review of Systems Review of Systems Narrative: GENERAL: Negative chills, positive fatigue, malaise, negative fever, sweats. HEENT: Negative sinus pain, ear pain, sore throat RESPIRATORY: Negative dyspnea, cough CARDIOVASCULAR: Negative chest pain, palpitations GASTROINTESTINAL: Negative vomiting, nausea, abdominal pain, positive rectal bleeding, no hematemesis : Negative dysuria, frequency, hematuria MUSCULOSKELETAL: Negative muscle or bony pain SKIN: Negative rash, skin lesions NEUROLOGIC: Negative weakness, numbness, positive dizziness ROS Unobtainable: All systems reviewed & are unremarkable except as noted in HPI and below Patient History Social History Smoking Status: Former smoker Smoking Status: Former smoker alcohol intake frequency: a few times a week Exam Narrative Exam Narrative: GENERAL: in no distress, not toxic not dyspneic HEAD: Normocephalic. EYES: Pupils equal round pink conjunctiva ENT: Mucous membranes moist. NECK: Trachea midline. CARDIOVASCULAR: Regular rate and rhythm RESPIRATORY: Clear to auscultation. Breath sounds equal bilaterally. No wheezes, rales, or rhonchi. GASTROINTESTINAL: Abdomen soft, non-tender, no peritoneal signs no guarding or rebound. No CVA tenderness. BACK: No flank tenderness. EXTREMITIES: No gross deformities. NEURO: AOx4. Clear speech SKIN: Warm and dry PSYCH: Not anxious, is cooperative Initial Vital Signs Initial Vital Signs: Vital Signs Temperature 98.1 F 06/07/25 14:18 Pulse Rate 100 H 06/07/25 14:18 Respiratory Rate 20 06/07/25 14:18 Blood Pressure 132/60 06/07/25 14:18 Pulse Oximetry 96 06/07/25 14:18 Oxygen Delivery Method Room Air 06/07/25 14:18 Course Orders Ordered: Discontinued Medications Sodium Chloride (Normal Saline 0.9%) 1,000 mls @ 1,000 mls/hr IV BOLUS ONE Stop: 06/07/25 16:55 Last Infusion: 06/07/25 17:23 Dose: Infused Documented By: Admin: 06/07/25 16:10 Dose: 1,000 mls/hr Documented By: PIYUSH Sodium Chloride (Normal Saline 0.9%) 1,000 mls @ 75 mls/hr IV CONT DEBRA Last Admin: 06/07/25 20:10 Dose: 75 mls/hr Documented By: PIYUSH Ondansetron HCl (Ondansetron 4 Mg/2 Ml Inj) 4 mg IV NOW PRN PRN Reason: Nausea And Vomiting Ondansetron HCl (Ondansetron 4 Mg Odt) 4 mg PO NOW PRN PRN Reason: Nausea And Vomiting Pantoprazole Sodium (Pantoprazole 40 Mg Vial) 80 mg IV NOW ONE Stop: 06/07/25 20:22 Last Admin: 06/07/25 20:40 Dose: 80 mg Documented By: Gregory Vital Signs Vital signs: Vital Signs - 8 hr 06/07/25 14:18 06/07/25 15:04 06/07/25 15:30 Temperature 98.1 F Pulse Rate 100 H 93 H 85 Respiratory Rate 20 16 17 Blood Pressure 132/60 Pulse Oximetry 96 99 99 Oxygen Delivery Method Room Air 06/07/25 16:00 06/07/25 16:12 06/07/25 16:12 Temperature Pulse Rate 92 H 92 H Respiratory Rate 23 19 Blood Pressure 100/53 L Pulse Oximetry 99 98 Oxygen Delivery Method 06/07/25 16:30 06/07/25 17:00 06/07/25 17:00 Temperature Pulse Rate 86 86 Respiratory Rate 17 18 Blood Pressure 139/60 Pulse Oximetry 100 100 Oxygen Delivery Method Room Air Room Air 06/07/25 17:30 06/07/25 17:31 06/07/25 17:31 Temperature Pulse Rate 94 H 94 H Respiratory Rate 21 21 Blood Pressure 114/54 L Pulse Oximetry 98 99 Oxygen Delivery Method 06/07/25 18:00 06/07/25 18:00 06/07/25 18:47 Temperature Pulse Rate 95 H 97 H Respiratory Rate 14 Blood Pressure 116/56 L Pulse Oximetry 98 98 Oxygen Delivery Method 06/07/25 19:00 06/07/25 19:20 06/07/25 19:20 Temperature Pulse Rate 94 H 89 Respiratory Rate 24 24 Blood Pressure 107/53 L Pulse Oximetry 98 99 Oxygen Delivery Method 06/07/25 19:30 06/07/25 19:30 06/07/25 20:00 Temperature Pulse Rate 91 H 90 Respiratory Rate 23 23 Blood Pressure 98/54 L Pulse Oximetry 100 96 Oxygen Delivery Method 06/07/25 20:00 Temperature Pulse Rate Respiratory Rate Blood Pressure 110/54 L Pulse Oximetry Oxygen Delivery Method MDM - GI Bleed Lab Data 06/07/25 20:55 06/07/25 14:32 Labs: Lab Results 06/07/25 06/07/25 Range/Units 14:32 20:55 WBC 4.5 3.8 L (4.5-11.0) X10^3/uL RBC 3.34 L 2.49 L (4.0-5.2) X10^6/uL Hgb 9.5 L 7.1 L (12.0-16.0) g/dL Hct 28.1 L 21.1 L (36-46) % MCV 84.3 84.5 (80-100) fL MCH 28.6 28.4 (26-34) PG MCHC 33.9 33.7 (30-36) % RDW 14.3 14.6 (11.6-14.8) % Plt Count 310 224 (150-400) X10^3/uL Neut % (Auto) 70.4 66.5 (50-75) % Lymph % (Auto) 22.0 L 25.2 (25-40) % [place] % (Auto) 3.9 4.6 (3-14) % Eos % (Auto) 2.6 3.1 (2-4) % Baso % (Auto) 1.1 0.6 (0-2) % Neut # (Auto) 3200 2500 (2757-8652) /uL Lymph # (Auto) 1000 L 1000 L (5250-5200) /uL [place] # (Auto) 200 200 (0-900) /uL Eos # (Auto) 100 100 (0-450) /uL Baso # (Auto) 100 0 (0-100) /uL PT 12.3 (9.4-12.5) SECONDS INR 1.1 (0.9-1.3) APTT 31 (25.1-36.5) SECONDS Sodium 141 (137-145) mmol/L Potassium 4.7 (3.4-5.1) mmol/L Chloride 106 (98-107) mmol/L Carbon Dioxide 26 (22-32) mmol/L BUN 17 (7-17) mg/dL Creatinine 0.67 (0.52-1.04) mg/dL Estimated GFR > 60 (>60) mL/min BUN/Creatinine Ratio 25.4 H (6-22) Glucose 104 H (70-99) mg/dL Calcium 8.4 (8.4-10.2) mg/dL Total Bilirubin 0.4 (0.2-1.3) mg/dL AST 37 H (14-36) IU/L ALT 18 (<35) IU/L Alkaline Phosphatase 103 (38-126) U/L Total Protein 6.5 (6.3-8.2) g/dL Albumin 3.7 (3.5-5.0) g/dL Globulin 2.8 (1.7-4.1) g/dL Albumin/Globulin Ratio 1.3 (1.0-2.8) Blood Type A Positive Antibody Screen Negative Point of Care Testing Stool Occult Blood Positive Urine Dip Bedside Urine Glucose Negative Bedside Urine Bilirubin - Negative Bedside Urine Ketone - Negative Urine Specific [place] 1.010 Bedside Urine Occult Blood - Negative Bedside Urine pH 7.0 Bedside Urine Protein - Negative Bedside Urine Urobilinogen - Negative Bedside Urine Nitrite - Negative Bedside Urine Leukocytes - Negative Esterase Imaging Data CT scan - abdomen/pelvis: Radiologist's Impression: [address] [address] [address] Scan Report Signed Patient: Mervat Salas MR#: [id number] : 1950 Acct:[id number] Age/Sex: 74 / F Date of Service: 06/07/25 Loc: ED Accession Number: [id number] Procedure: CT abdomen pelvis w con Ordering Provider: Pavan Serrano MD PROCEDURE: CT ABDOMEN PELVIS W CON INDICATIONS: abd pain diverticulitis suspected TECHNIQUE: After the administration of intravenous contrast, axial sections acquired from the lung bases to the pubic symphysis. Coronal and sagittal reformats were performed. For radiation dose reduction, the following was used: automated exposure control, adjustment of mA and/or kV according to patient size. COMPARISON: [facility], CT, CT ABDOMEN PELVIS WITH CONTRAST, 05/27/2025, 19:31. FINDINGS: Image quality: Diagnostic. Lower Chest: [id number] hiatal hernia. ABDOMEN: Liver: No solid mass. Gallbladder: Absent Biliary ducts: No biliary dilation. Pancreas: No ductal dilation. Spleen: Size is within normal limits. Adrenal Glands: No adrenal nodules. Kidneys and Ureters: No hydronephrosis. No solid mass. No complex renal cystic lesion which requires follow up. Stomach and Bowel: Normal colonic caliber, without significant wall thickening. Moderately advanced sigmoid diverticulosis. No CT evidence of acute diverticulitis. Peritoneum: No abnormal intraperitoneal fluid. No free air. Ventral Wall: No significant ventral hernia. Abdominal Nodes: No retroperitoneal or mesenteric adenopathy by size criteria. Vessels: Aorta and inferior vena cava are normal in size. PELVIS: Pelvic Organs: Uterus is surgically absent. No adnexal masses.. Bladder: No bladder wall thickening, accounting for underdistention. Pelvic Nodes: No enlarged lymph nodes. Miscellaneous: No inguinal hernias are seen. Bones: No aggressive osseous abnormality. IMPRESSION: 1. Moderately advanced sigmoid diverticulosis without CT evidence of acute diverticulitis. 2. Remote cholecystectomy and hysterectomy. 3. Normal appendix. 4. [id number] hiatal hernia. Dictated by: Wilber Wright M.D. on 06/07/2025 at 15:19 Approved by: Wilber Wright M.D. on 06/07/2025 at 15:27 MDM Narrative Medical decision making narrative: Patient here for dizziness, no abdominal pain starting today also had bright red blood per rectum. None since then. Patient is not on any blood thinners. Patient does have history of lower GI bleed diverticulosis diverticulitis. Did have clipping of duodenal bulb by Dr. Avalos, [facility], November 08, 2023. Patient denies any syncope. No chest pain palpitations no back pain. Patient did have history of blood transfusions and iron infusions prior to the clipping. MDM After history and exam, CBC CMP PT INR type and screen CT abdomen pelvis normal saline Differential considered: Includes but not limited to upper GI bleed lower GI bleed diverticulosis Medical records reviewed: May 27, 2025 ER visit [facility] hemoglobin 13.2 hematocrit 39 platelets 445, procedure notes November 08, 2023 for EGD [facility] Lab Test results independently reviewed as above. Pertinent findings: WBC 4.5 hemoglobin 9.5 hematocrit 28 platelets 310 INR 1.1 sodium 141 potassium 4.7 BUN 17 creatinine 0.67 AST 37 ALT 18, blood type A positive Independently reviewed EKG normal sinus rhythm rate 92 normal EKG Imaging studies independently reviewed: CT abdomen pelvis diverticulosis Consultations: 4:10 p.m.. Spoke with [facility] Gastroenterology dr gamble, agrees, patient should be transferred she will follow in consult. Would recommend having colonoscopy tomorrow to prep tonight. No Txa his fusion indicated at this time. Patient is improving with IV fluids. 8:24 p.m.. I spoke with [facility], hospitalist, dr dawson, she will admit pt, need repeat cbc and give Protonix 80 mg IV Re-evaluations: 4:00 p.m. Updated patient results, will need transfer for continuity care to [facility]. Patient in no distress. Vital signs are reassuring on monitor. Discussion: Appropriate for transfer for continuity of care as well as needing diagnostic as well as therapeutic endoscopy Repeat CBC was requested by hospitalist at [facility]. However patient has remained hemodynamically stable. No transfusion at this time. This will delay patient's care and transfer. Blood pressure 110/56 heart rate 85 96% on room air. Diagnosis: Lower GI bleed Discharge Plan Departure Patient Disposition: [facility] Clinical Impression: Lower gastrointestinal hemorrhage Prescriptions: No Action pioglitazone 15 MG tablet 15 mg PO QDAY Qty: 30 0RF escitalopram oxalate [Lexapro] 20 MG tablet 20 mg PO QDAY Qty: 30 2RF aspirin 81 MG tablet,chewable Qty: 0 ranitidine HCl 150 MG capsule 150 mg PO BID Qty: 0 lisinopril 2.5 MG tablet Qty: 0 metformin [Glucophage XR] 750 MG tablet extended release 24 hr 750 mg PO [facility] Qty: 0 lovastatin 40 MG tablet 40 mg PO HS Qty: 0 hydroxyzine HCl 25 MG tablet Qty: 0 ondansetron 4 mg tablet,disintegrating 4 mg PO TID-QID PRN (Reason: nausea and vomiting) Qty: 10 0RF Referrals: Stacy Mills MD [Primary Care Provider, Family Practice]
[2025-06-07] MEDS: SODIUM CHLORIDE 0.9% 1,000 ML 1000 ML IV (16:10)
[2025-06-07] MEDS: SODIUM CHLORIDE 0.9% 1,000 ML 75 ML IV (20:10)
[2025-06-07] MEDS: PANTOPRAZOLE 40 MG VIAL 80 MG IV (20:40)
[2025-06-07 21:03] LABS: Add Manual Diff / Slide Review NO; Hematocrit 21.1 % (36-46); Hemoglobin 7.1 g/dL (12.0-16.0); Lymphocytes Absolute Auto 1000 /uL (1100-4500); Mean Corpuscular HGB Conc 33.7 % (30-36); Mean Corpuscular Hemoglobin 28.4 PG (26-34); Mean Corpuscular Volume 84.5 fL (80-100); Platelet Count 224 X10^3/uL (150-400)
--- NOTE | 2025-06-07 22:44 | PC.NURSE ---
Report called to LATOSHA Frankel, [facility] # [id number] @ [phone]
== END 2025-06-07 22:46 | disposition short-term general hospital (02) ==
PROVIDERS: Emergency Medicine; Emergency Provider Emergency Medicine; PCP Family Medicine
DX: K92.2 Gastrointestinal hemorrhage, unspecified (principal)
CPT/HCPCS: 74177; 80053; 81003; 82272; 85025; 85610; 85730; 86850; 86900; 86901; 93005; 96361; 96374; 99284; J2470; J7030; Q9967